=== PATIENT | female | born 1980 | race Caucasian/White ===

== ENCOUNTER → 2020-12-22 | Outpatient (REF) | payer BC | LOC: M SFHCWAGY 17:33 | PROVIDERS: ATTEND Advanced Practice Midwife | DX: Z12.4 Encounter for screening for malignant neoplasm of cervix (principal) ==

== ENCOUNTER → 2021-01-15 | Outpatient (CLI) | payer BC ==
--- NOTE | 2021-01-15 22:12 | REP ---
INDICATION: N92.4 MENORRHAGIA/PREMENOPAUSAL COMPARISON: None. TECHNIQUE: Transabdominal pelvic ultrasound followed by transvaginal examination for better evaluation of the endometrium and adnexa with color Doppler evaluation of the ovaries. FINDINGS: Bladder is unremarkable and measures 9.5 x 5.3 x 7.0 cm. Normal anteverted uterus measures 9.1 x 4.4 x 5.4 cm. The endometrial complex measures 6.5 mm thickness. Small echogenic foci at the endometrium likely represent chronic calcifications. Bilateral ovaries are normal in appearance and vascularity without evidence for torsion. Right ovary measures 2.3 x 1.2 x 2.4 cm; R I = 0.48. Left ovary measures 2.9 x 1.9 x 1.7 cm; R I = 0.60. No pelvic fluid or adnexal mass lesion. IMPRESSION: Essentially normal pelvic ultrasound. <Electronically signed by Pardeep Myers > 01/15/21 0047
== END ==
LOC: M WHC 16:04
PROVIDERS: ATTEND Advanced Practice Midwife
DX: N92.4 Excessive bleeding in the premenopausal period (principal)

== ENCOUNTER → 2021-02-19 | Outpatient (REF) | payer BC | LOC: M SFHCWAGY 13:38 | PROVIDERS: ATTEND Advanced Practice Midwife | DX: N92.0 Excessive and frequent menstruation with regular cycle (principal) ==

== ENCOUNTER → 2021-07-09 | Outpatient (CLI) | payer BC ==
[~2021-07-09] MED LIST: CVS1CAP2 PO; OXYC1TAB23 PO; SPIR50TA4 PO; THERTAB52 PO
== END ==
LOC: M LABSMTC 09:06
PROVIDERS: ATTEND Obstetrics & Gynecology
DX: Z01.812 Encounter for preprocedural laboratory examination (principal); Z20.822 Contact with and (suspected) exposure to COVID-19

== ENCOUNTER 2021-07-13 08:55 | Day surgery (SDC) | payer BC ==
[~2021-07-13] VITALS: Ht 167.6 cm; Wt 64.0 kg
[~2021-07-13 08:55] MED LIST changes: +LR 1,000 ML IV ONE; -OXYC1TAB23 PO
--- OUTSIDE RECORDS SUMMARY | 2021-07-13 09:00 | CCD ---
Author Author [facility] Organization [facility] [employer] [facility] Address Unknown Phone Unavailable Care Team Providers Care Manager Staffing Name Role Phone Lowell Esparza Unavailable PROBLEMS Type Condition ICD9-CM Code [id number] Code Onset Dates Condition S tatus W/U Status Risk SNOMED Code Notes Problem Abnormal uterine bleeding N93.9 Active confirmed [id number] ALLERGIES No Known Allergies ENCOUNTERS from 1982 to 2021-04-30 Encounter Location Date Provider Diagnosis [facility] [address] [place] [address] [place] [address] 10 Apr, 2021 Lowell Esparza IMMUNIZATIONS No Information SOCIAL HISTORY Tobacco Use: Social History Observation Description Date Details (start date - stop date) Never Smoker Sex Assigned At : Social History Observation Description Sex Assigned At Unknown Alcohol Screening: Question Answer Notes Did you have a drink containing alcohol in the past year? Ye s Points 2 Interpretation Negative How often did you have six or more drinks on one occas ion in the past year? Never (0 points) How many drinks did you have on a typica l day when you were drinking in the past year? 1 or 2 (0 points) How often did you have a drink containing alcohol in t he past year? Two to four times a month (2 points) Tobacco Use: Question Answer Notes Are you a: never smoker REASON FOR REFERRAL No Information VITAL SIGNS No information MEDICATIONS Medication SIG (Take, Route, Frequency, Duration) Notes Start Da te End Date Status 27-1 MG 1 tablet Orally Once a day Active Probiotic - as directed Orally Activ e Vitamin D 25 MCG (1000 UT) 5000 UT Orally Once a day Active Spironolactone 50 MG 1 tablet Orally Twice a day Active PROCEDURES No Information RESULTS No Results REASON FOR VISIT SURGERY * MEDICAL (GENERAL) HISTORY Type Description Date Medical History acne Medical History PCOS Surgical History [place] Teeth Extraction Surgical History Liver Biopsy 2015 Hospitalization History childbirth Hospitalization History Pre-eclampsia after delivery 2016 Goals Section No Information Health Concerns No Information MEDICAL EQUIPMENT No Information MENTAL STATUS No Information FUNCTIONAL STATUS No Information ASSESSMENTS No Information PLAN OF TREATMENT Next Appt Details Provider Name:Lowell Esparza, 01:40:00 PM, [address] [place] [address], , [place], [address], Provider Name:Lowell Esparza, 02:30:00 PM, [address] [place] [address] , [place], [address], Provider Name:Lowell Esparza, 08:20:00 AM, [address] [place] [address] , [place], [address], Insurance Providers Payer Name Payer Address Payer Phone Insured Name Patient Relati onship to Insured Coverage Start Date Coverage End Date BCBS OF [facility] [id number] [facility] [id number] TANYA SANDERSON
--- OUTSIDE RECORDS SUMMARY | 2021-07-13 09:00 | CCD | Continuity of Care Document ---
Author Author Ratna RODRIGUEZ Organization Unknown Address [address] [place] [address] [place] [address] Phone [phone] Problems Description No Information Available Social History Type Date Description Comments Sex Unknown ETOH Use Occasionally consumes alcohol Tobacco Use Start: Unknown Patient has never smoked Tobacco Use Start: Unknown The patient has never vaped Smoking Status Reviewed: 05/30/21 The patient has never vaped Allergies and adverse reactions Description No Known Drug Allergies Medications Active Medications SIG Qnty Indications Ordering Provide r Date Acetaminophen Extra Strength 500mg Tablets at 7:30a 1 tab by mouth every 6 hours as needed Unknown Spironolactone Unknown Mvi Unknown Probiotic + [place]-3 Unknown Immunizations Description No Information Available Vital Signs Date Vital Result Comment 05/30/2021 10:24am BP Systolic 111 mmHg BP Diastolic 75 mmHg Heart Rate 96 /min Respiratory Rate 12 /min O2 % BldC Oximetry 98 % Body Temperature 98.2 F Weight 135.00 lb Height 66 inches 5'6" BMI (Body Mass Index) 21.8 kg/m2 Pain Level 0 up to 8 Results Description No Information Available Procedures Date Code Description Status 05/30/2021 72112 Office/Outpatient New Low [facility] 30 -44 Minutes Completed Medical Devices Description No Information Available Encounters Type Date Location Provider Dx Diagnosis Office Visit 05/30/2021 9:05a Main Office MARILIN Schuster JR J 06.9 Acute upper respiratory infection, unspecified Z20.828 Contact w and exposure to ot h viral communicable diseases Assessments Date Code Description Provider 05/30/2021 J06.9 Acute upper respiratory infectio n, unspecified MARILIN Schuster JR 05/30/2021 Z20.828 Contact with and (canas spected) exposure to other viral communicable diseases Elías Rodriguez JR PA Plan of Treatment No Information Available Functional Status Description No Information Available Mental Status Description No Information Available Referrals Description No Information Available
--- OUTSIDE RECORDS SUMMARY | 2021-07-13 09:00 | CCD | Continuity of Care Document ---
Author Author Ratna RODRIGUEZ Organization Unknown Address [address] [place] [address] [place] [address] Phone [phone] Problems Description No Information Available Social History [...] Unknown Spironolactone Unknown Mvi Unknown Probiotic + [place]-3 Unknown Immunizations Description No Information Available Vital [...] Available Procedures Date Code Description Status 05/30/2021 73788 Office/Outpatient New Low [facility] 30 -44 Minutes Completed Medical Devices [...]
--- OUTSIDE RECORDS SUMMARY | 2021-07-13 09:00 | CCD ---
Author Author [facility] Organization [facility] Address Unknown Phone Unavailable Care Team Providers Care Oyster Cultivator Name Role Phone Vilma Lowell Unavailable PROBLEMS Type Condition ICD9-CM Code FVT72-AS Code Onset Dates Condition S tatus W/U Status Risk SNOMED Code Notes Problem Abnormal uterine bleeding N93.9 Active confirmed [id number] ALLERGIES No Known Allergies ENCOUNTERS from 1982 to 2021-04-30 Encounter Location Date Provider Diagnosis [facility] [address] [place] [address] [place] [address] Apr, Lowell Esparza IMMUNIZATIONS No Information SOCIAL HISTORY [...] Information RESULTS No Results REASON FOR VISIT 07/13/21 SURG AUTH MEDICAL (GENERAL) HISTORY Type Description Date Medical History acne Medical History PCOS Surgical History [place] Teeth Extraction Surgical History Liver Biopsy 2015 Hospitalization History childbirth Hospitalization History Pre-eclampsia after delivery 2016 Goals Section No Information Health Concerns No Information MEDICAL EQUIPMENT No Information MENTAL STATUS No Information FUNCTIONAL STATUS No Information ASSESSMENTS No Information PLAN OF TREATMENT Next Appt Details Provider Name:Lowell Esparza, 01:40:00 PM, [address] [place] [address] , [place], [address], Provider Name:Lowell Esparza, 02:30:00 PM, [address] [place] [address] , [place], [address], Provider Name:Lowell Esparza, 08:20:00 AM, [address] [place] [address] , [place], [address], Insurance Providers Payer Name Payer Address Payer Phone Insured Name Patient Relati onship to Insured Coverage Start Date Coverage End Date [facility] [id number] [facility] [id number] TANYA SANDERSON
--- OUTSIDE RECORDS SUMMARY | 2021-07-13 09:00 | CCD ---
Author Author [facility] Organization [facility] Address Unknown Phone Unavailable Care Team Providers Care Research Neuropsychologist Name Role Phone Esparza, Lowell Unavailable PROBLEMS Type Condition ICD9-CM Code WDB13-IH Code Onset Dates Condition S tatus W/U Status Risk SNOMED Code Notes Problem Abnormal uterine bleeding N93.9 Active confirmed [id number] ALLERGIES No Known Allergies ENCOUNTERS from 1982 to 2021-04-26 Encounter Location Date Provider Diagnosis [facility] [address] [place] [address] [place] [address] Apr, Lowell Esparza Abnormal uterine ble eding N93.9 IMMUNIZATIONS No Information SOCIAL HISTORY Tobacco Use: [...] REASON FOR REFERRAL No Information VITAL SIGNS Weight 137.6 lbs Apr, Weight-kg 62.41 kg Apr, Height 66 in Apr, BMI 22.21 kg/m2 Apr, Blood pressure systolic 110 mm Hg Apr, Blood pressure diastolic 70 mm Hg Apr, MEDICATIONS Medication SIG (Take, Route, Frequency, Duration) Notes Start Da te End Date Status 27-1 MG 1 tablet Orally Once a day Active Probiotic - as directed Orally Activ e Vitamin D 25 MCG (1000 UT) 5000 UT Orally Once a day Active Spironolactone 50 MG 1 tablet Orally Twice a day Active PROCEDURES No Information RESULTS No Results REASON FOR VISIT SURGICAL CONSULT MEDICAL (GENERAL) HISTORY Type Description Date Medical History acne Medical History PCOS Surgical History [place] Teeth Extraction Surgical History Liver Biopsy 2014 Hospitalization History childbirth Hospitalization History Pre-eclampsia after delivery 2016 Goals Section No Information Health Concerns No Information MEDICAL EQUIPMENT No Information MENTAL STATUS No Information FUNCTIONAL STATUS No Information ASSESSMENTS Encounter Date Diagnosis Assessment Notes Treatment Notes Treatm ent Clinical Notes Apr, Abnormal uterine bleeding (ICD-10 - N93.9) AUB treatment options were reviewed in detail. After our discussion of her history, physical/imaging findings, and treatment options, she is most interested in a Novasure endometrial ablation . Info submitted for surgical scheduling and preoperative counseling/exam. PLAN OF TREATMENT Treatment Notes Assessment Notes Clinical Notes Abnormal uterine bleeding AUB treatment options were reviewed in detail. After our discussion of her history, physical/imaging findings, and treatment options, she is most interested in a Novasure endometrial ablation . Info s ubmitted for surgical scheduling and preoperative counseling/exam. Next Appt Details TBD Reason: Insurance Providers Payer Name Payer Address Payer Phone Insured Name Patient Relati onship to Insured Coverage Start Date Coverage End Date [facility] [id number] [facility] [id number] TANYA SANDERSON self
--- OUTSIDE RECORDS SUMMARY | 2021-07-13 09:01 | CCD ---
Author Author [facility] Organization [facility] Address Unknown Phone Unavailable Care Team Providers Care Insulation Estimator Name Role Phone Ayaka MEDELLIN JR, PA-C Unavailable Unavailable Ayaka MEDELLIN JR PA-C Unavailable Unavailable Ayaka MEDELLIN JR PA-C Unavailable Unavailable Ayaka MEDELLIN JR PA-C Unavailable Unavailable Ayaka MEDELLIN JR PA-C Unavailable Unavailable Ayaka MEDELLIN JR PA-C Unavailable Unavailable Ayaka MEDELLIN JR PA-C Unavailable Unavailable Ayaka MEDELLIN JR PA-C Unavailable Unavailable Ayaka MEDELLIN JR PA-C Unavailable Unavailable Ayaka MEDELLIN JR PA-C Unavailable Unavailable Ayaka MEDELLIN JR PA-C Unavailable Unavailable Ayaka MEDELLIN JR PA-C Unavailable Unavailable PICKAyaka MCCULLOUGH JR PA-C Unavailable Unavailable PICKAyaka MCCULLOUGH JR PA-C Unavailable Unavailable Ayaka MEDELLIN JR PA-C Unavailable Unavailable Ayaka MEDELLIN JR PA-C Unavailable Unavailable Ayaka MEDELLIN JR PA-C Unavailable Unavailable Ayaka MEDELLIN JR PA-C Unavailable Unavailable Ayaka MEDELLIN JR PA-C Unavailable Unavailable Ayaka MEDELLIN JR PA-C Unavailable Unavailable Ayaka MEDELLIN JR PA-C Unavailable Unavailable Ayaka MEDELLIN JR PA-C Unavailable Unavailable Ayaka MEDELLIN JR PA-C Unavailable Unavailable Ayaka MEDELLIN JR PA-C Unavailable Unavailable PICKERAL JR, J HALLEY PA-C Unavailable Unavailable PICKERAL JR, J HALLEY PA-C Unavailable Unavailable PICKERAL JR, J HALLEY PA-C Unavailable Unavailable Lockerbie, S Anjali DIGITAL LIBRARIAN-C Unavailable Unavailable Lockerbie, S Anjali DIGITAL LIBRARIAN-C Unavailable Unavailable Lockerbie, S Anjali DIGITAL LIBRARIAN-C Unavailable Unavailable Lockerbie, S Anjali DIGITAL LIBRARIAN-C Unavailable Unavailable Lockerbie, S Anjali DIGITAL LIBRARIAN-C Unavailable Unavailable Lockerbie, S Anjali DIGITAL LIBRARIAN-C Unavailable Unavailable Lockerbie, S Anjali DIGITAL LIBRARIAN-C Unavailable Unavailable Lockerbie, S Anjali DIGITAL LIBRARIAN-C Unavailable Unavailable Lockerbie, S Anjali DIGITAL LIBRARIAN-C Unavailable Unavailable Lockerbie, S Anjali DIGITAL LIBRARIAN-C Unavailable Unavailable Lockerbie, S Anjali DIGITAL LIBRARIAN-C Unavailable Unavailable Lockerbie, S Anjali DIGITAL LIBRARIAN-C Unavailable Unavailable Lockerbie, S Anjali DIGITAL LIBRARIAN-C Unavailable Unavailable Lockerbie, S Anjali DIGITAL LIBRARIAN-C Unavailable Unavailable Lockerbie, S Anjali DIGITAL LIBRARIAN-C Unavailable Unavailable Lockerbie, S Anjali DIGITAL LIBRARIAN-C Unavailable Unavailable Lockerbie, S Anjali DIGITAL LIBRARIAN-C Unavailable Unavailable Lockerbie, S Anjali DIGITAL LIBRARIAN-C Unavailable Unavailable Lockerbie, S Anjali DIGITAL LIBRARIAN-C Unavailable Unavailable Lockerbie, S Anjali DIGITAL LIBRARIAN-C Unavailable Unavailable Lockerbie, S Anjali DIGITAL LIBRARIAN-C Unavailable Unavailable Lockerbie, S Anjali DIGITAL LIBRARIAN-C Unavailable Unavailable Lockerbie, S Anjali DIGITAL LIBRARIAN-C Unavailable Unavailable Lockerbie, S Anjali DIGITAL LIBRARIAN-C Unavailable Unavailable Re-disclosure Warning The records that you are about to access may contain information from federally-assisted alcohol or drug abuse programs. If such information is present, then the following federally mandated warning applies: This information has been disclosed to you from records protected by federal confidentiality rules (42 CFR part 2). The federal rules prohibit you from making any further disclosure of this information unless further disclosure is expressly permitted by the written consent of the person to whom it pertains or as otherwise permitted by 42 CFR part 2. A general authorization for the release of medical or other information is NOT sufficient for this purpose. The Federal rules restrict any use of the information to criminally investigate or prosecute any alcohol or drug abuse patient.The records that you are about to access may contain highly sensitive health information, the redisclosure of which is protected by Article 27-F of the [facility] Public Health law. If you continue you may have access to information: Regarding HIV / AIDS; Provided by facilities licensed or operated by the [facility] Office of Mental Health; or Provided by the [facility] Office for People With Developmental Disabilities. If such information is present, then the following [facility] mandated warning applies: This information has been disclosed to you from confidential records which are protected by state law. State law prohibits you from making any further disclosure of this information without the specific written consent of the person to whom it pertains, or as otherwise permitted by law. Any unauthorized further disclosure in violation of state law may result in a fine or alf sentence or both. A general authorization for the release of medical or other information is NOT sufficient authorization for further disc losure. Encounters Encounter Providers Location Date Indications Data Source(s ) Outpatient Attender: HALLEY James Prima ry 05/30/2021 09:05:00 AM EDT MED[facility] ([facility] Unknown [address] [facility] [id number] 04/30/2021 12:00:00 AM EDT eCW1 ([facility]) Unknown [address] [facility] [id number] 04/20/2021 12:00:00 AM EDT eCW1 (Critical access hospital) Outpatient [address] [facility] [id number] 04/17/2021 12:00:00 AM EDT eCW1 (Critical access hospital) (WC PROC) [facility] [address] [place] [address] 2021 12:00:00 AM EDT eCW1 ([facility]) Unknown [address] [id number] 01/22/2021 12:00:00 AM EDT eCW1 (Critical access hospital) Outpatient Attender: Anjali CHEN Main Office 01/03/2021 04:30:00 PM EDT MILO ([facility]) Outpatient [address] [facility] [address] 12/22/2020 12:00:00 AM EDT eCW1 (Critical access hospital) Immunizations Vaccine Date Status Description Data Source(s) COVID-19 VACCINE Pfizer 06/08/2021 12:00:00 AM EDT completed [facility] Vaccine Series Complete: YESThis Data wa s Submitted to [facility]. COVID-19 VACCINE Pfizer 11/10/2020 12:00:00 AM EDT completed [facility] Vaccine Series Complete: YESThis Data wa s Submitted to [facility]. COVID-19 VACCINE Pfizer 10/20/2020 12:00:00 AM EST completed [facility] Vaccine Series Complete: NOThis Data was Submitted to [facility]. Medications Medication Brand Name Start Date Product Form Dose Route Admi nistrative Instructions Pharmacy Instructions Status Indications Reaction Description Data Source(s) 150 mg 07/10/2021 12:00:00 AM EST tablet 2 TAKE 1 TABLET BY MOUTH ONCE TAKE 1 TABLET BY MOUTH ONCE SOLD: 07/11/2021 [facility] 50 mg 02/28/2021 12:00:00 AM EDT tablet 166 TAKE ONE TABLET BY MOUTH TWICE A DAY TAKE ONE TABLET BY MOUTH TWICE A DAY SOLD: 03/22/2021 [facility] 50 mg 02/28/2021 12:00:00 AM EDT tablet 160 TAKE ONE TABLET BY MOUTH TWICE A DAY TAKE ONE TABLET BY MOUTH TWICE A DAY SOLD: 06/26/2021 [facility] Nystatin 599549 UNT/ML / Triamcinolone A cetonide 1 MG/ML Topical Cream 100,000- 0.1 unit/g-% [facility]/TRIAMCIN 11/24/2020 12:00:00 AM EDT cream 15 APPLY SPARINGLY TWO TIMES A DAY NEEDED FOR ITCHING APPLY SPARINGLY TWO TIMES A DAY NEEDED FOR ITCHING SOLD: 11/26/2020 [facility] 150 mg 11/24/2020 12:00:00 AM EDT tablet 2 TAKE ONE TABLET BY MOUTH NOW, MAY REPEAT IF NEEDED IN THREE TO FIVE DAYS TAKE ONE TABLET BY MOUTH NOW, MAY REPEAT IF NEEDED IN THREE TO FIVE DAYS SOLD: 11/26/2020 [facility] Nystatin 099475 UNT/ML / Triamcinolone Acetonide 1 MG/ ML Topical Cream Nystatin-Triamcinolone 11/23/2020 12:00:00 AM EDT active [facility] ([facility]) Fluconazole 150 MG Oral Tablet Fluconazole 11/23/2020 12:00:00 AM EDT ORAL active [facility] ([facility]) 50 mg 08/25/2020 12:00:00 AM EST tablet 180 TAKE ONE TABLET BY MOUTH TWICE A DAY TAKE ONE TABLET BY MOUTH TWICE A DAY SOLD: 08/26/2020 [facility] 50 mg 08/25/2020 12:00:00 AM EST tablet 180 TAKE ONE TABLET BY MOUTH TWICE A DAY TAKE ONE TABLET BY MOUTH TWICE A DAY SOLD: 12/03/2020 [facility] Spironolactone 50 MG Oral Tablet Spironolactone 08/24/2020 12:00:00 A M EST ORAL active [facility] ([facility]) Insurance Providers Payer name Policy type / Coverage type Policy ID Covered democrat ID Covered democrat's relationship to ordonez Policy Or[employer]z Plan Information [employer] [place] 302/307 [id number] SP [id number] [place] [place] 302/[id number] SP [id number] [place] 306/[phone] [id number] SP [id number] Problems, Conditions, and Diagnoses Code Display Name Description Problem Type Effective Dates Data Source(s) N93.9 [id number] Abnormal uterine bleeding Problem 04/17/2021 12:00:00 AM EDT eCW1 ([facility]) Surgeries/Procedures Procedure Description Date Indications Data Source(s) OFFICE OUTPATIENT NEW 30 MINUTES 05/30/2021 12:00:00 A M EDT MED[facility] ([facility]) URINE TEST 2021 12:00:00 AM EDT eCW1 ([facility]) Shave Biopsy Of Skin, Single Lesion 01/03/2021 12:00:0 0 AM EDT MED[facility] ([facility]) Each Separate/Additional Lesion 01/03/2021 12:00:00 AM EDT [facility] ([facility]) OFFICE OUTPATIENT VISIT 25 MINUTES 01/03/2021 12:00:00 AM EDT MED[facility] ([facility]) Results ID Date Data Source [id number] 07/09/2021 09:05:00 AM EST [facility] Name Value Range Interpretation Code Description Data Brook rce(s) Supporting Document(s) SARS-CoV-2 (COVID-19) RNA [Presence] in Respiratory specimen by SUKHJINDER with probe detection Not Detected [facility] This lab was ordered by [facility] and reported by [facility]. ID Date Data Source [id number] 05/30/2021 12:00:00 AM EDT [facility] Name Value Range Interpretation Code Description Data Brook rce(s) Supporting Document(s) SARS-CoV2 Rapid Antigen Negative [facility] This lab was ordered by [facility] and reported by [facility]. ID Date Data Source [id number] 01/03/2021 05:06:00 PM EDT MED[facility] ([facility]) Name Value Range Interpretation Code Description Data Brook rce(s) Supporting Document(s) Thyrotropin [Units/volume] in Serum or Plasma 1.450 uIU/mL 0.450-4.50 0 [facility] Laboratory test finding (navigational concept) Laboratory test result [facility] ([facility]) ID Date Data Source [id number] 01/03/2021 05:06:00 PM EDT [facility] ([facility]) Name Value Range Interpretation Code Description Data Brook rce(s) Supporting Document(s) Leukocytes [#/volume] in Blood by Automated count 7.7 x10E3/uL 3.4-10 .8 [facility] ([facility]) Erythrocytes [#/volume] in Blood by Automated count 4.18 x10E6/uL 3.7 7-5.28 [facility] Hematocrit [Volume Fraction] of Blood by Automated count 38.1 % 3 4.0-46.6 [facility] Hemoglobin [Mass/volume] in Blood 12.9 g/dL 11.1-15.9 [facility] ([facility]) Erythrocyte mean corpuscular hemoglobin [Entitic mass] by Automated count 30.9 pg 26.6-33.0 [facility] ([facility]) Erythrocyte mean corpuscular volume [Entitic volume] by Auto mated count 91 fL 79-97 [facility] ([facility]) Erythrocyte distribution width [Ratio] by Automated count 11.9 % 11.7-15.4 [facility] ([facility]) Erythrocyte mean corpuscular hemoglobin concentration [Mass/volume] by Automated count 33.9 g/dL 31.5-35.7 [facility] ([facility]) Neutrophils/100 leukocytes in Blood by Automated count 53 % [facility] ([facility]) Platelets [#/volume] in Blood by Automated count 258 x10E3/uL 150-450 [facility] ([facility]) Monocytes/100 leukocytes in Blood by Automated count 5 % [facility] ([facility]) Lymphocytes/100 leukocytes in Blood by Automated count 41 % [facility] ([facility]) Eosinophils/100 leukocytes in Blood by Automated count 1 % [facility] ([facility]) Basophils/100 leukocytes in Blood by Automated count 0 % [facility] ([facility]) Immature cells [#/volume] in Blood Laboratory test result [facility] ([facility]) Neutrophils [#/volume] in Blood by Automated count 4.1 x10E3/uL 1.4-7 .0 [facility] ([facility]) Lymphocytes [#/volume] in Blood 3.1 x10E3/uL 0.7-3.1 [facility] ([facility]) Eosinophils [#/volume] in Blood by Automated count 0.1 x10E3/uL 0.0-0 .4 [facility] ([facility]) Monocytes [#/volume] in Blood 0.4 x10E3/uL 0.1-0.9 [facility] ([facility]) Immature granulocytes/100 leukocytes in Blood by Automated count 0 % [facility] ([facility]) Basophils [#/volume] in Blood by Automated count 0.0 x10E3/uL 0.0-0.2 [facility] ([facility]) Nucleated erythrocytes/100 leukocytes [Ratio] in Blood by Automated count Laboratory test result [facility] ([facility]) Immature granulocytes [#/volume] in Blood by Automated count 0.0 x10E3/uL 0.0-0.1 [facility] ([facility]) Morphology [Interpretation] in Blood Narrative Laboratory test result [facility] ([facility]) ID Date Data Source [id number] 01/03/2021 04:34:00 PM EDT [facility] ([facility]) Name Value Range Interpretation Code Description Data Brook rce(s) Supporting Document(s) Laboratory test finding (navigational concept) Laboratory test result [facility] ([facility]) A) No further treatment B) No further tr eatment C) No further treatment Laboratory test finding (navigational concept) Laboratory test result [facility] ([facility]) A) No further treatment B) No further tr eatment C) No further treatment ID Date Data Source [id number] 09/26/2020 12:00:00 AM EST [facility] Name Value Range Interpretation Code Description Data Borok rce(s) Supporting Document(s) SARS coronavirus 2 RNA Not Detected [facility] This lab was ordered by [facility] and reported by [facility]. ID Date Data Source [id number] 06/16/2020 12:00:00 AM EST [facility] Name Value Range Interpretation Code Description Data Brook rce(s) Supporting Document(s) SARS-CoV2 Rapid Antigen [facility] This lab was ordered by [facility] and reported by [facility]. ID Date Data Source [id number] 06/12/2020 12:00:00 AM EST [facility] Name Value Range Interpretation Code Description Data Brook rce(s) Supporting Document(s) SARS-CoV2 Rapid Antigen [facility] This lab was ordered by [facility] and reported by [facility]. Procedure Social History Code Duration Value Status Description Data Source(s ) Smoking 04/17/2021 12:00:00 AM EDT Never Smoker completed Never S moker eCW1 ([facility]) Smoking 04/17/2021 12:00:00 AM EDT Never Smoker completed Never S moker eCW1 ([facility]) Smoking 04/17/2021 12:00:00 AM EDT Never Smoker completed Never S moker eCW1 ([facility]) Smoking 2021 12:00:00 AM EDT Never Smoker completed Never S moker eCW1 ([facility]) Smoking 12/22/2020 12:00:00 AM EDT Never Smoker completed Never S moker eCW1 ([facility]) Smoking 12/22/2020 12:00:00 AM EDT Never Smoker completed Never S moker eCW1 ([facility]) Vital Signs ID Date Data Source UNK Name Value Range Interpretation Code Description Data Source(s) Diastolic blood pressure 75 mm[Hg] 75 mm[Hg] MEDENT ([facility]) Systolic blood pressure 111 mm[Hg] 111 mm[Hg] M EDENT ([facility]) Heart rate 96 /min 96 /min [facility] ([facility]) Respiratory rate 12 /min 12 /min [facility] ( [facility]) Oxygen saturation in Arterial blood by Pulse oximetry 98 % 98 % [facility] ([facility]) Body temperature 98.2 [degF] 98.2 [degF] [facility] ([facility]) Body weight 135.00 [lb_av] 135.00 [lb_av] MEDEN T ([facility]) Body height 66 [in_i] 66 [in_i] [facility] ([facility]) 5'6" Body mass index (BMI) [Ratio] 21.8 kg/m2 21.8 k g/m2 [facility] Body weight 137.6 [lb_av] 137.6 [lb_av] eCW1 ([facility]) Body weight 62.41 kg 62.41 kg W1 ([facility]) Body height 66 [in_i] 66 [in_i] [facility] ([facility]) Body mass index (BMI) [Ratio] 22.21 kg/m2 22.21 kg/m2 [facility] ([facility]) Systolic blood pressure 110 mm[Hg] 110 mm[Hg] e CW1 ([facility]) Diastolic blood pressure 70 mm[Hg] 70 mm[Hg] eCW1 ([facility]) Body weight 137.4 [lb_av] 137.4 [lb_av] eCW1 ([facility]) Body weight 62.32 kg 62.32 kg eCW1 ([facility]) Body height 66 [in_i] 66 [in_i] eCW1 ([facility]) Body mass index (BMI) [Ratio] 22.17 kg/m2 22.17 kg/m2 W1 ([facility]) Systolic blood pressure 114 mm[Hg] 114 mm[Hg] e CW1 ([facility]) Diastolic blood pressure 76 mm[Hg] 76 mm[Hg] eCW1 ([facility]) Systolic blood pressure 12 mm[Hg] 12 mm[Hg] M EDENT ([facility]) Diastolic blood pressure 80 mm[Hg] 80 mm[Hg] [facility] ([facility]) Body weight 135.00 [lb_av] 135.00 [lb_av] MEDEN T ([facility]) Body weight 135.2 [lb_av] 135.2 [lb_av] eCW1 ([facility]) Body weight 61.33 kg 61.33 kg W1 ([facility]) Body height 66 [in_i] 66 [in_i] eCW1 ([facility]) Body mass index (BMI) [Ratio] 21.82 kg/m2 21.82 kg/m2 [facility] ([facility]) Systolic blood pressure 110 mm[Hg] 110 mm[Hg] e CW1 ([facility]) Diastolic blood pressure 78 mm[Hg] 78 mm[Hg] eCW1 ([facility])
[2021-07-13] MEDS ORDERED: LIDOCAINE 2% 100MG/5ML SDV (FOR ANES.) As Ordered ONE (09:30)
[2021-07-13] MEDS ORDERED: propofoL 200 MG/20 ML VIAL As Ordered ONE (09:30)
[2021-07-13] MEDS ORDERED: fentaNYL 100 MCG/2 ML INJECTION (J3010) As Ordered ONE (09:30)
[2021-07-13 09:31] LABS: HEMOGLOBIN 13.4 g/dl (12.0-15.5); MEAN CORPUSCULAR HEMOGLOBIN 30.3 pg (27.0-33.0); MEAN CORPUSCULAR HGB CONC 33.5 g/dl (32.0-36.5); MEAN CORPUSCULAR VOLUME 90.5 fl (80.0-96.0); PLATELET COUNT, AUTOMATED 314 10^3/uL (150-450); RED BLOOD COUNT 4.42 10^6/uL (4.00-5.40); WHITE BLOOD COUNT 5.8 10^3/uL (4.0-10.0)
[2021-07-13] MEDS ORDERED: MIDAZOLAM INJ 2MG/2ML VIAL (J2250 PER 1MG) As Ordered ONE (09:31)
[2021-07-13 10:02] LABS: HCG, SERUM QUALITATIVE NEGATIVE (NEGATIVE)
[2021-07-13] MEDS ORDERED: SILVER NITRATE APPLICATOR As Ordered ONE (12:54)
[2021-07-13] MEDS ORDERED: CHLOROPROCAINE PRES. FREE 2% 20ML VIAL As Ordered ONE (12:57)
[2021-07-13] MEDS ORDERED: oxyCODONE 5MG TAB PO PRN (14:15)
[2021-07-13] MEDS ORDERED: METOCLOPRAMIDE INJ 10MG/2ML VIAL (J2765 PER 1) IV PRN (14:15)
[2021-07-13] MEDS ORDERED: LR 1,000 ML IV SCH (14:15)
[2021-07-13] MEDS ORDERED: ONDANSETRON 4MG/2ML VIAL IV PRN (14:15)
[2021-07-13] MEDS ORDERED: fentaNYL 100 MCG/2 ML INJECTION (J3010) IV PRN (14:15)
--- NOTE | 2021-07-13 14:23 | ROOPDOC ---
[facility] Report Of Operation Report of Operation DATE OF OPERATION: 07/13/2021 PREOPERATIVE DIAGNOSIS: Abnormal uterine bleeding. POSTOPERATIVE DIAGNOSIS: Abnormal uterine bleeding PROCEDURES PERFORMED: NovaSure endometrial ablation, Hysteroscopy dilatation and curettage (D&C) SURGEON: Livier Esparza DO PROJECT LEAD: None. ANESTHESIA: General via laryngeal mask airway (LMA). SPECIMEN(S) SENT TO PATHOLOGY: Endometrial curettings. ESTIMATED BLOOD LOSS: 5 mL. FLUIDS REPLACED: 400 mL lactated ringers. DRAINS: In and out catheter. URINE OUTPUT: 20 mL. COMPLICATIONS: None. PREOPERATIVE ANTIBIOTICS: None indicated. INTRAOPERATIVE FINDINGS: Cavity length was 6.5 cm. Cavity width 3.5 cm. Power 120 maxwell. Radiofrequency ablation time 51 seconds. No intrauterine masses on hysteroscopy examination. No evidence of uterine perforation post ablation. INDICATIONS FOR PROCEDURE: Abnormal uterine bleeding/persistent postmenopausal bleeding. Previous endometrial biopsy reveals benign endometrium. DESCRIPTION OF PROCEDURE: The patient was counseled and consented on the risks, benefits, indications, and alternatives of the procedure. Informed consent was obtained. She was taken to the operating room with an IV running and positioned on the operating room table in the dorsal supine position. General anesthesia was administered and airway secured without any difficulty. She was positioned in the high lithotomy position. She was prepared and draped in the normal sterile fashion. The bladder was drained with a sterile in and out catheter. A sterile speculum was placed with good visualization of the cervix. The anterior lip of the cervix was grasped with a single-tooth tenaculum. Downward traction was applied. The cervix was sequentially dilated with Simba dilators up to a #16. The uterus was sounded to 9 cm with a cervical length of 2.5 cm. The hysteroscop e was placed transcervically into the intrauterine cavity with the findings noted above. No endometrial mass. Normal intrauterine cavity. The hysteroscope was removed. A sharp curettage was performed throughout the entire intrauterine cavity with minimal tissue return. The NovaSure device was placed transcervically into the intrauterine cavity and deployed in typical fashion. A cavity assessment was performed. The cavity assessment cleared and the ablation was activated. The radiofrequency ablation time was 51 seconds. The device was removed in typical fashion without any difficulty. The hysteroscope was placed transcervically into the intrauterine cavity. Excellent intrauterine distention was noted. No evidence of uterine perforation. Global ablation was noted throughout the cavity. The hysteroscope was removed. The single-tooth tenaculum was removed. The tenaculum sites were cauterized with silver nitrate. All instruments were removed from the vagina. The patient tolerated the entire procedure very well. She was transferred to the post anesthesia care unit (PACU) in good and stable condition. Sponge and instrument counts were correct per protocol. LIVIER ESPARZA DO Jul 13, 2021 14:23
[2021-07-13] MEDS ORDERED: OXYC1TAB23 PO (14:31)
[2021-07-13 16:42] VITALS: BP 120/81
== END 2021-07-13 16:59 | disposition home or self-care (01) ==
LOC: M SDC 08:55
PROVIDERS: ATTEND Obstetrics & Gynecology
DX: N93.9 Abnormal uterine and vaginal bleeding, unspecified (principal); Z79.899 Other long term (current) drug therapy; E28.2 Polycystic ovarian syndrome
CPT/HCPCS: 36415; 58563; 84703; 85027; 86850; 86900; 86901; 88305; J2250; J2400; J3010

== ENCOUNTER → 2022-01-18 | Outpatient (CLI) | payer BC ==
[~2022-01-18] MED LIST changes: -LR 1,000 ML IV ONE; +OXYC1TAB23 PO; +PROHANCE 279.3MG/ML 15ML VIAL ONE
== END ==
LOC: M PLAIMG 13:07
PROVIDERS: ATTEND Nurse Practitioner Adult Health
DX: D37.6 Neoplasm of uncertain behavior of liver, gallbladder and bile ducts (principal); Z14.8 Genetic carrier of other disease; K76.89 Other specified diseases of liver
CPT/HCPCS: 71552; 72197; 74183; A9576

== ENCOUNTER → 2022-02-01 | Outpatient (CLI) | payer BC ==
[~2022-02-01] MED LIST changes: +ISOVUE-370 76% 100ML VIAL ONE; -PROHANCE 279.3MG/ML 15ML VIAL ONE
== END ==
LOC: M PLAIMG 14:07
PROVIDERS: ATTEND Nurse Practitioner Adult Health
DX: R91.8 Other nonspecific abnormal finding of lung field (principal)
CPT/HCPCS: 71260; Q9967

== ENCOUNTER → 2022-06-14 | Outpatient (REF) | payer BC ==
[~2022-06-14] MED LIST changes: -ISOVUE-370 76% 100ML VIAL ONE
== END ==
LOC: M SFHCDERM 14:23
PROVIDERS: ATTEND Dermatology
DX: D22.71 Melanocytic nevi of right lower limb, including hip (principal)

== ENCOUNTER → 2022-07-19 | Outpatient (REF) | payer BC | LOC: M SFHCWAGY 12:56 | PROVIDERS: ATTEND Advanced Practice Midwife | DX: Z12.4 Encounter for screening for malignant neoplasm of cervix (principal) | CPT/HCPCS: 87624; G0123 ==

== ENCOUNTER → 2022-07-19 | Outpatient (CLI) | payer BC | LOC: M WHC 09:23 | PROVIDERS: ATTEND Advanced Practice Midwife | DX: Z12.31 Encounter for screening mammogram for malignant neoplasm of breast (principal) ==

== ENCOUNTER → 2023-02-07 | Outpatient (CLI) | payer BC ==
[~2023-02-07] MED LIST changes: +PROHANCE 279.3MG/ML 15ML VIAL ONE
== END ==
LOC: M PLAIMG 08:08
PROVIDERS: ATTEND Nurse Practitioner Adult Health
DX: Z14.8 Genetic carrier of other disease (principal)
CPT/HCPCS: 72197; 74183; A9576

== ENCOUNTER → 2023-03-14 | Outpatient (CLI) | payer BC ==
[~2023-03-14] MED LIST changes: +PROHANCE 279.3MG/ML 15ML VIAL As Ordered ONE; -PROHANCE 279.3MG/ML 15ML VIAL ONE
== END ==
LOC: M RAD 12:07
PROVIDERS: ATTEND Nurse Practitioner Adult Health
DX: Z14.8 Genetic carrier of other disease (principal)
CPT/HCPCS: 71552; A9576

== ENCOUNTER → 2023-03-17 | Outpatient (CLI) | payer BC ==
[~2023-03-17] MED LIST changes: -PROHANCE 279.3MG/ML 15ML VIAL As Ordered ONE
== END ==
LOC: M RAD 11:48
PROVIDERS: ATTEND Nurse Practitioner Adult Health
DX: N83.291 Other ovarian cyst, right side (principal); D25.9 Leiomyoma of uterus, unspecified

== ENCOUNTER → 2023-04-15 | Outpatient (CLI) | payer BC | LOC: M RAD 12:55 | PROVIDERS: ATTEND Nurse Practitioner Adult Health | DX: N83.201 Unspecified ovarian cyst, right side (principal) ==

== ENCOUNTER → 2024-01-16 | Outpatient (CLI) | payer BC | LOC: M WHC 10:29 | PROVIDERS: ATTEND Advanced Practice Midwife | DX: Z12.31 Encounter for screening mammogram for malignant neoplasm of breast (principal) ==

== ENCOUNTER → 2024-01-16 | Outpatient (REF) | payer BC ==
[2024-01-20 12:43] LABS: HPV APTIMA Not Detected (Not Detected)
== END ==
LOC: M SFHCWAGY 13:17
PROVIDERS: ATTEND Advanced Practice Midwife
DX: Z12.4 Encounter for screening for malignant neoplasm of cervix (principal)
CPT/HCPCS: 87624; G0123

== ENCOUNTER → 2024-01-23 | Outpatient (CLI) | payer BC ==
[~2024-01-23] MED LIST changes: +PROHANCE 279.3MG/ML 15ML VIAL ONE
== END ==
LOC: M PLAIMG 12:19
PROVIDERS: ATTEND Nurse Practitioner Family
DX: Z14.8 Genetic carrier of other disease (principal); Z80.8 Family history of malignant neoplasm of other organs or systems; N83.201 Unspecified ovarian cyst, right side; N83.202 Unspecified ovarian cyst, left side
CPT/HCPCS: 72197; 74183; A9576

== ENCOUNTER → 2024-01-30 | Outpatient (CLI) | payer BC | LOC: M PLAIMG 07:41 | PROVIDERS: ATTEND Nurse Practitioner Family | DX: Z14.8 Genetic carrier of other disease (principal); F80.89 Other developmental disorders of speech and language | CPT/HCPCS: 71552; A9576 ==

== ENCOUNTER → 2025-02-10 | Outpatient (CLI) | payer BC | LOC: M PLAIMG 07:14 | PROVIDERS: ATTEND Nurse Practitioner Family | DX: Z14.8 Genetic carrier of other disease (principal); Z80.8 Family history of malignant neoplasm of other organs or systems | CPT/HCPCS: 71552; A9576 ==